=== PATIENT | male | born 1940 | race Hispanic/Latino ===

== ENCOUNTER → 2020-11-14 | Outpatient (CLI) | payer MEDICARE ==
[~2020-11-14] MED LIST: LISINOPRIL10 MG PO; MULTIVITAMIN PO; PANTOPRAZOLE SO40 MG PO; PROPRANOLOL HCL10 MG PO; PROPRANOLOL HCL40 MG PO; PROTONIX40 MG PO; SPIRONOLACTONE50 MG PO; TRADJENTA5 MG PO; VIT B12 PO; VITAMIN C500 MG PO
== END ==
LOC: RAD 08:22
PROVIDERS: ATTEND Family Medicine
DX: M25.562 Pain in left knee (principal)

== ENCOUNTER → 2021-01-06 | Day surgery (SDC) | payer MEDICARE ==
[2021-01-02 15:40] LABS: BASOPHILS % 1.2 % (0.0-1.0); EOSINOPHILS # (AUTO) 0.1 (0.0-0.4); EOSINOPHILS % 4.8 % (0.0-6.0); HEMATOCRIT 33.2 % (38.2-49.6); HEMOGLOBIN 10.9 g/dL (14.0-18.0); LYMPHOCYTES # (AUTO) 0.6 (1.0-3.2); LYMPHOCYTES % 22.5 % (18.0-39.1); MEAN CORPUSCULAR HEMOGLOBIN 30.1 pg (28-32); MEAN CORPUSCULAR HGB CONC 32.8 g/dL (31-35); MEAN CORPUSCULAR VOLUME 91.7 fL (81-99); MONOCYTES # (AUTO) 0.3 (0.2-0.8); MONOCYTES % 10.8 % (4.4-11.3); NEUTROPHILS # (AUTO) 1.5 (2.1-6.9); NEUTROPHILS % 60.3 % (38.7-80.0); RED BLOOD COUNT 3.62 x10e6/uL (4.3-5.7); RED CELL DISTRIBUTION WIDTH 15.5 % (11.7-14.4)
[2021-01-02 15:57] LABS: ALBUMIN 3.7 g/dL (3.5-5.0); ALBUMIN/GLOBULIN RATIO 0.9 (0.8-2.0); ANION GAP 13.9 mmol/L (8-16); CALCIUM 9.4 mg/dL (8.4-10.2); CHOL/HDL RATIO 2.7 (3.9-4.7); POTASSIUM 4.9 mmol/L (3.5-5.1)
[2021-01-02 16:17] LABS: PLATELET ESTIMATE MARKEDLY DECREASED; PLATELET MORPHOLOGY COMMENT FEW EDTA CLUMPING; RBC MORPHOLOGY COMMENT NORMAL
[2021-01-02 16:21] LABS: PLATELET COUNT 42 x10e3/uL (140-360)
[2021-01-06] VITALS (9 sets, daily range): BP systolic 112–135; BP diastolic 52–68
[~2021-01-06] VITALS: Ht 160 cm; Wt 54.0 kg
[~2021-01-06] MED LIST changes: +ASPIRIN 325 MG TAB ONE; +FENTANYL CITRATE/PF 100MCG/2 ML INJ ONE; +HEPARIN SOD/SOD CHLORIDE 2,000 ML ONE; +IOPAMIDOL 370 MG/ML 200 ML INFUS..BTL INJ ONE; +IRON PO; +LASIX20 MG PO; +LIDOCAINE HCL 2% LOCAL 20 ML VIAL ONE; +METFORMIN HCL850 MG PO; +MIDAZOLAM HCL 2 MG/2 ML VIAL ONE; +MULTIVITAMIN1 EACH PO; +SODIUM CHLORIDE 0.9% 1000ML 1,000 ML ONE; +VITAMIN B-121000 MCG PO; +VITAMIN D3 PO
== END | disposition home or self-care (01) ==
LOC: CATH LAB 08:43
PROVIDERS: ATTEND Internal Medicine Cardiovascular Disease
DX: I25.10 Atherosclerotic heart disease of native coronary artery without angina pectoris (principal); R94.39 Abnormal result of other cardiovascular function study; R06.09 Other forms of dyspnea; I10 Essential (primary) hypertension; E11.8 Type 2 diabetes mellitus with unspecified complications; F17.210 Nicotine dependence, cigarettes, uncomplicated; Z01.812 Encounter for preprocedural laboratory examination; Z20.822 Contact with and (suspected) exposure to COVID-19; Z79.84 Long term (current) use of oral hypoglycemic drugs; Z79.899 Other long term (current) drug therapy; Z85.05 Personal history of malignant neoplasm of liver
CPT/HCPCS: 36415 ×2; 76937; 80053; 80061; 82948; 85025; 85610; 85730; 93458; C1769; C1887; J2001; J2250; J3010; J7030; Q9967; U0002; 99152